=== PATIENT | male | born 2000 | race Caucasian/White ===

== ENCOUNTER → 2020-10-17 | Outpatient (CLI) | payer OTHER ==
--- NOTE | 2020-10-17 08:53 | REP ---
INDICATION: HTN COMPARISON: None TECHNIQUE: Real time cavazos scale ultrasound examination using curved array transducer followed by color Doppler evaluation of the renal vasculature. FINDINGS: The bilateral kidneys demonstrate normal contour, size, echogenicity and reniform shape without hydronephrosis, nephrolithiasis, or cystic lesion. Right kidney measures 11.0 x 6.7 x 4.7 cm. 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 Bladder is under distended. Color Doppler evaluation. Peak aortic velocity: 157.1 centimeters/second RIGHT KIDNEY Renal arterial velocity: 160.8 centimeters/second Renal-aortic ratio: 1.07 Intrarenal resistive indices: 0.51-0.59 Intrarenal acceleration times: 0.013-0.025 LEFT KIDNEY Renal arterial velocity: 156.8 centimeters/second Renal-aortic ratio: 1.00 Intrarenal resistive indices: 0.51-0.52 Intrarenal acceleration times: 0.017-0.036 IMPRESSION: 1. Kidneys appear normal. 2. Doppler interegation without sonographic evidence for renal arterial stenosis. <Electronically signed by Gomez Thomson > 10/17/20 [id number]
== END ==
LOC: M RAD 07:40
PROVIDERS: ATTEND Physician Assistant
DX: I10 Essential (primary) hypertension (principal)

== ENCOUNTER → 2021-01-15 | Outpatient (CLI) | payer OTHER ==
[~2021-01-15] MED LIST: ISOVUE-370 76% 100ML VIAL As Ordered ONE
--- NOTE | 2021-01-15 15:54 | REP ---
INDICATION: NEOPLAMS UNCREATINE BEHAVIOR. COMPARISON: None. TECHNIQUE: Standard helical technique before and after the intravenous administration of 100 cc Isovue 370 FINDINGS: The lung bases are clear. The pre contrast enhanced portion examination shows a single 5 mm size nonobstructing left nephrolith. There are no choleliths. Hepatic and splenic densities are within normal limits. The contrast-enhanced portion examination shows the liver, gallbladder, spleen, pancreas, adrenal glands, and kidneys to be within normal limits. The abdominal aorta and para-aortic regions are within normal limits. The bowel loops and the mesenteries are within normal limits. There is no evidence of a mass or adenopathy. There is no free fluid or free air. Bone window technique throughout the examination shows the osseous structures to be within normal limits. IMPRESSION: With the exception of a single nonobstructing left nephrolith, CT findings are within normal limits. <Electronically signed by Zander Zabala > 01/15/21 [id number]
== END ==
LOC: M RAD 14:57
PROVIDERS: ATTEND Internal Medicine Nephrology
DX: D41.02 Neoplasm of uncertain behavior of left kidney (principal)

== ENCOUNTER → 2021-06-28 | Outpatient (REF) | LOC: M PLAIMG 09:37 | PROVIDERS: ATTEND Internal Medicine | DX: R06.02 Shortness of breath (principal) ==